=== PATIENT | male | born 1990 | race Caucasian/White ===

== ENCOUNTER 2017-11-29 19:29 | Emergency (ER) | payer OTHER ==
[~2017-11-29] VITALS: Ht 165.1 cm; Wt 74.8 kg
[~2017-11-29 19:29] MED LIST: NASONEX17 GM NS; NORCO 5-325 TA1 EACH PO; ZYRTEC10 M1 PO
[2017-11-29 21:37] LABS: URINE BILIRUBIN NEGATIVE (Negative); URINE BLOOD NEGATIVE (Negative); URINE CLARITY CLEAR; URINE COLOR YELLOW; URINE GLUCOSE-RANDOM NEGATIVE (Negative); URINE KETONES NEGATIVE (Negative); URINE LEUKOCYTES-REFLEX NEGATIVE (Negative); URINE NITRITE-REFLEX NEGATIVE (Negative); URINE PROTEIN NEGATIVE (Negative); URINE SPECIFIC GRAVITY 1.025 (1.005-1.030); URINE UROBILINOGEN 0.2 E.U./dl (0.2-1.0)
[2017-11-29 21:44] LABS: ABSOLUTE BASOPHILS 0.1 thou/uL (0.0-0.2); ABSOLUTE EOSINOPHILS 0.4 thou/uL (0.0-0.7); ABSOLUTE LYMPHOCYTES 2.6 thou/uL (0.8-5.3); ABSOLUTE MONOCYTES 0.9 thou/uL (0.0-1.2); BASOPHILS 0.5 %; EOSINOPHILS 4.1 %; HEMATOCRIT 47.3 % (42.0-52.0); HEMOGLOBIN 16.4 gm/dL (14.0-18.0); LYMPHOCYTES 23.3 %; MCH 31.3 pg (26.0-34.0); MCHC 34.7 g/dL (28.0-37.0); MCV 90.2 fL (80.0-100.0); MONOCYTES 8.5 %; MPV 9.2 fl. (7.2-11.1); NUCLEATED RBCS 0 /100WBC; PLATELET COUNT* 233 thou/uL (150-400); POLYS 63.6 %; RBC 5.24 mil/uL (4.50-6.00)
[2017-11-29 22:14] LABS: CALCIUM 8.3 mg/dL (8.5-10.1); CREATININE 0.9 mg/dL (0.6-1.3); POTASSIUM 4.1 mmol/L (3.5-5.1)
[2017-11-29 22:18] LABS: ALBUMIN 3.8 g/dL (3.4-5.0); TOTAL BILIRUBIN 0.5 mg/dL (<0.1-1.0); TOTAL PROTEIN 7.6 g/dL (6.4-8.2)
[2017-11-29] MEDS ORDERED: TORADOL 10 MG T10 MG PO (23:48)
[2017-11-29] MEDS ORDERED: ACETAMINOPHEN-1 EAC1 PO (23:49)
[2017-11-30 00:10] VITALS: BP 124/84
== END 2017-11-30 00:11 | disposition home or self-care (01) ==
LOC: M.ERS 19:29
PROVIDERS: Physician Assistant
DX: R10.11 Right upper quadrant pain (principal); R10.31 Right lower quadrant pain; F10.99 Alcohol use, unspecified with unspecified alcohol-induced disorder

== ENCOUNTER → 2018-05-07 | Outpatient (CLI) | payer OTHER ==
[~2018-05-07] MED LIST changes: +ACETAMINOPHEN-1 EAC1 PO; +TORADOL 10 MG T10 MG PO
== END ==
LOC: M.RAD 11:12
DX: S62.307A Unspecified fracture of fifth metacarpal bone, left hand, initial encounter for closed fracture (principal); X58.XXXA Exposure to other specified factors, initial encounter; Y93.89 Activity, other specified; Y92.89 Other specified places as the place of occurrence of the external cause; Y99.8 Other external cause status

== ENCOUNTER 2018-11-14 19:00 | Emergency (ER) | payer OTHER ==
[~2018-11-14] VITALS: Ht 165.1 cm; Wt 74.8 kg
[2018-11-14] MEDS ORDERED: CEFDINIR300 MG (19:14)
[2018-11-14] MEDS ORDERED: NORCO 5-325 TA1 EACH PO (20:01)
[2018-11-14] MEDS ORDERED: PREDNISONE 20 M20 M1 PO (20:01)
[2018-11-14] MEDS ORDERED: BACTRIM DS TAB1 EACH PO (20:01)
[2018-11-14 20:09] LABS: ABSOLUTE BASOPHILS 0.1 thou/uL (0.0-0.2); ABSOLUTE EOSINOPHILS 0.2 thou/uL (0.0-0.7); ABSOLUTE LYMPHOCYTES 2.3 thou/uL (0.8-5.3); ABSOLUTE MONOCYTES 0.7 thou/uL (0.0-1.2); ABSOLUTE NEUTROPHILS 6.1 thou/uL (1.6-8.1); BASOPHILS 0.7 %; EOSINOPHILS 2.6 %; HEMATOCRIT 47.6 % (42.0-52.0); HEMOGLOBIN 16.2 gm/dL (14.0-18.0); MCV 91.2 fL (80.0-100.0); MONOCYTES 7.4 %; MPV 9.6 fl. (7.2-11.1); NUCLEATED RBCS 0 /100WBC; PLATELET COUNT* 289 thou/uL (150-400); POLYS 65.3 %; RBC 5.22 mil/uL (4.50-6.00); RDW-CV 12.7 % (10.5-14.5); WBC 9.4 thou/uL (4.0-11.0)
[2018-11-14 20:18] LABS: ALBUMIN 4.1 g/dL (3.4-5.0); CALCIUM 9.2 mg/dL (8.5-10.1); CREATININE 0.9 mg/dL (0.6-1.3); POTASSIUM 3.9 mmol/L (3.5-5.1)
[2018-11-14 20:30] LABS: TOTAL BILIRUBIN 0.6 mg/dL (<0.1-1.0)
[2018-11-14 20:31] LABS: TOTAL PROTEIN 8.3 g/dL (6.4-8.2)
[2018-11-14] MEDS ORDERED: ONDANSETRON HCL4 M2 PO (22:09)
[2018-11-14] MEDS ORDERED: VENTOLIN HFA 1818 GM INH (22:10)
[2018-11-14] MEDS ORDERED: PROMETH-CODEIN 65 ML PO (22:10)
[2018-11-14 22:30] VITALS: BP 116/78
== END 2018-11-14 22:30 | disposition home or self-care (01) ==
LOC: M.ERS 19:00
PROVIDERS: Nurse Practitioner Family
DX: J11.1 Influenza due to unidentified influenza virus with other respiratory manifestations (principal); J02.0 Streptococcal pharyngitis; R11.2 Nausea with vomiting, unspecified; Z88.8 Allergy status to other drugs, medicaments and biological substances

== ENCOUNTER 2019-04-22 00:40 | Emergency (ER) | payer OTHER ==
[~2019-04-22] VITALS: Ht 165.1 cm; Wt 72.6 kg
[~2019-04-22 00:40] MED LIST changes: +BACTRIM DS TAB1 EACH PO; +CEFDINIR300 MG; +ONDANSETRON HCL4 M2 PO; +PREDNISONE 20 M20 M1 PO; +PROMETH-CODEIN 65 ML PO; +VENTOLIN HFA 1818 GM INH
[2019-04-22] MEDS ORDERED: NOHOMEMEDICATIONS (00:53)
[2019-04-22 01:40] LABS: CALCIUM 8.7 mg/dL (8.5-10.1); CREATININE 0.9 mg/dL (0.6-1.3); POTASSIUM 3.8 mmol/L (3.5-5.1)
[2019-04-22] MEDS ORDERED: TESSALON PERLE100 MG PO (01:44)
[2019-04-22 02:10] VITALS: BP 108/75
== END 2019-04-22 02:10 | disposition home or self-care (01) ==
LOC: M.ERS 00:40
PROVIDERS: Emergency Medicine Emergency Medical Services
DX: J40 Bronchitis, not specified as acute or chronic (principal); Z88.6 Allergy status to analgesic agent

== ENCOUNTER 2019-07-31 17:29 | Emergency (ER) | payer OTHER ==
[~2019-07-31] VITALS: Ht 157.5 cm; Wt 63.5 kg
[~2019-07-31 17:29] MED LIST changes: +NOHOMEMEDICATIONS; +TESSALON PERLE100 MG PO
[2019-07-31 18:02] LABS: HEMATOCRIT 49.8 % (42.0-52.0); MCH 30.9 pg (26.0-34.0); MCHC 34.2 g/dL (28.0-37.0); MCV 90.3 fL (80.0-100.0); MPV 9.8 fl. (7.2-11.1); RBC 5.51 mil/uL (4.50-6.00); RDW-CV 12.5 % (10.5-14.5); WBC 18.5 thou/uL (4.0-11.0)
[2019-07-31 18:11] LABS: CREATININE 1.1 mg/dL (0.6-1.3); POTASSIUM 3.8 mmol/L (3.5-5.1)
[2019-07-31 18:15] LABS: ALBUMIN 4.3 g/dL (3.4-5.0); TOTAL BILIRUBIN 1.3 mg/dL (<0.1-1.0); TOTAL PROTEIN 8.5 g/dL (6.4-8.2)
[2019-07-31] MEDS ORDERED: ZPAK PO (18:25)
[2019-07-31 18:52] VITALS: BP 120/85
== END 2019-07-31 18:52 | disposition home or self-care (01) ==
LOC: M.ERS 17:29
PROVIDERS: Emergency Medicine Emergency Medical Services
DX: J18.9 Pneumonia, unspecified organism (principal); R11.2 Nausea with vomiting, unspecified; Z88.6 Allergy status to analgesic agent

== ENCOUNTER 2019-11-13 17:52 | Emergency (ER) | payer OTHER ==
[~2019-11-13] VITALS: Ht 165.1 cm; Wt 72.6 kg
[~2019-11-13 17:52] MED LIST changes: +ZPAK PO
[2019-11-13] MEDS ORDERED: CLARITIN10 M3 PO (18:01)
[2019-11-13 18:35] LABS: INFLUENZA A ANTIGEN Negative (Negative); INFLUENZA B ANTIGEN Negative (Negative)
[2019-11-13] MEDS ORDERED: ONDANSETRON HCL4 M3 PO (19:17)
[2019-11-13] MEDS ORDERED: TESSALON PERLE100 MG PO (19:17)
[2019-11-13 19:47] VITALS: BP 112/79
== END 2019-11-13 19:48 | disposition home or self-care (01) ==
LOC: M.ERS 17:52
PROVIDERS: Physician Assistant
DX: J06.9 Acute upper respiratory infection, unspecified (principal); Z88.6 Allergy status to analgesic agent

== ENCOUNTER 2020-01-05 13:51 | Emergency (ER) | payer OTHER ==
[~2020-01-05] VITALS: Ht 165.1 cm; Wt 74.8 kg
[~2020-01-05 13:51] MED LIST changes: +CLARITIN10 M3 PO; +ONDANSETRON HCL4 M3 PO
[2020-01-05 14:32] LABS: INFLUENZA A ANTIGEN Negative (Negative); INFLUENZA B ANTIGEN Negative (Negative)
[2020-01-05] MEDS ORDERED: AMOXICILLIN 50500 MG PO ×2 (14:44→15:22)
[2020-01-05] MEDS ORDERED: TYLENOL WITH CO1 TA1 PO ×2 (14:44→15:22)
[2020-01-05] MEDS ORDERED: ONDANSETRON HCL4 M3 PO ×2 (14:44→15:22)
[2020-01-05] MEDS ORDERED: MEDROLDOSEPACK PO ×2 (14:44→15:22)
== END 2020-01-05 15:01 | disposition home or self-care (01) ==
LOC: M.ERS 13:51
PROVIDERS: Physician Assistant
DX: J02.0 Streptococcal pharyngitis (principal); Z88.6 Allergy status to analgesic agent

== ENCOUNTER 2020-01-25 11:10 | Emergency (ER) | payer OTHER ==
[~2020-01-25] VITALS: Ht 165.1 cm; Wt 74.8 kg
[~2020-01-25 11:10] MED LIST changes: +AMOXICILLIN 50500 MG PO; +MEDROLDOSEPACK PO; +TYLENOL WITH CO1 TA1 PO
[2020-01-25 12:21] LABS: INFLUENZA A ANTIGEN Negative (Negative)
[2020-01-25] MEDS ORDERED: TESSALON PERLE100 MG PO (12:22)
[2020-01-25 12:34] VITALS: BP 94/56
== END 2020-01-25 12:35 | disposition home or self-care (01) ==
LOC: M.ERS 11:10
PROVIDERS: Nurse Practitioner Family
DX: J10.1 Influenza due to other identified influenza virus with other respiratory manifestations (principal); Z88.6 Allergy status to analgesic agent